=== PATIENT | female | born 1960 | race Caucasian/White ===

== ENCOUNTER 2020-06-08 15:13 | Outpatient (CLI) | payer OTHER, SELFPAY ==
--- NOTE | ~2020-06-08 | MM_ITS ---
EXAMINATION: MM screening [facility] w ada HISTORY: Screening TECHNIQUE: Craniocaudal and mediolateral oblique 3-D tomosynthesis images were obtained and synthetic 2-D images were generated. CAD analysis was submitted and interpreted. COMPARISON: Comparison to multiple prior studies sequentially, with oldest reviewed study dated 02/13. BREAST PARENCHYMAL COMPOSITION: There are scattered areas of fibroglandular density. FINDINGS: There is no evidence of suspicious mass, calcification, or architectural distortion to sugg est malignancy in either breast. There has been no suspicious interval change. IMPRESSION: 1. No mammographic evidence of malignancy. 2. Recommend routine screening mammography in one year. BI-RADS Category 1: Negative Reviewed, dictated and finalized at location A.
== END 2020-06-08 15:14 | disposition home or self-care (01) ==
DX: Z12.31 Encounter for screening mammogram for malignant neoplasm of breast (principal)
CPT/HCPCS: 77063; 77067

== ENCOUNTER 2021-08-17 07:42 | Outpatient (CLI) | payer OTHER, SELFPAY ==
--- NOTE | ~2021-08-17 | MM_ITS ---
EXAMINATION: MM screening [facility] BI w ada HISTORY: Screening mammogram TECHNIQUE: Craniocaudal and mediolateral oblique 3-D tomosynthesis images were obtained and synthetic 2-D images were generated. CAD analysis was submitted and interpreted. COMPARISON: 06/08/2020, 04/30/2019, 03/27/2018 BREAST PARENCHYMAL COMPOSITION: There are scattered areas of fibroglandular density. FINDINGS: A stable intramammary lymph node is noted in the upper outer quadrant of the left breast. T here is no evidence of suspicious mass, calcification, or architectural distortion to suggest maligna ncy in either breast. There has been no suspicious interval change. IMPRESSION: 1. No mammographic evidence of malignancy. 2. Recommend routine screening mammography in one year. BI-RADS Category 2: Benign finding(s). Reviewed, dictated and finalized at location A. L BUSINESS CONSULTANT
== END 2021-08-17 07:43 | disposition home or self-care (01) ==
LOC: ANHIMG 07:46
PROVIDERS: Visit Provider Internal Medicine
DX: Z12.31 Encounter for screening mammogram for malignant neoplasm of breast (principal)
CPT/HCPCS: 77063; 77067

== ENCOUNTER 2022-09-26 15:18 | Outpatient (CLI) | payer OTHER, SELFPAY ==
--- NOTE | ~2022-09-26 | MM_ITS ---
EXAMINATION: MM screening [facility] BI w ada HISTORY: Screening TECHNIQUE: Craniocaudal and mediolateral oblique 3-D tomosynthesis images were obtained and synthetic 2-D images were generated. CAD analysis was submitted and interpreted. COMPARISON: Comparison to multiple prior studies sequentially, with oldest reviewed study dated 12/2015. BREAST PARENCHYMAL COMPOSITION: There are scattered areas of fibroglandular density. FINDINGS: There is no evidence of suspicious mass, calcification, or architectural distortion to sugg est malignancy in either breast. There has been no suspicious interval change. IMPRESSION: 1. No mammographic evidence of malignancy. 2. Recommend routine screening mammography in one year. BI-RADS Category 1: Negative Reviewed, dictated and finalized at location A. THODONTIST
== END 2022-09-26 15:19 | disposition home or self-care (01) ==
LOC: ANHIMG 15:19
PROVIDERS: PCP Family Medicine; Visit Provider Family Medicine
DX: Z12.31 Encounter for screening mammogram for malignant neoplasm of breast (principal)
CPT/HCPCS: 77063; 77067

== ENCOUNTER 2022-10-11 02:10 | Day surgery (SDC) | payer OTHER, SELFPAY ==
[2022-09-27 13:24] VITALS: BMI 25.4
[2022-10-11 07:20] VITALS: BP 129/70; PULSE 98; RESP 18; TEMP 36.6; O2SAT 100
[2022-10-11] MEDS: LACTATED RINGERS 1,000 ML 150 ML IV CONT (07:28)
--- NOTE | 2022-10-11 07:59 | PM.HPGS ---
History of Present Illness History of Present Illness Consent: Risks, benefits, and alternatives have been discussed and questions answered. Patient agrees to proceed with procedure. Chief complaint: neoplasm screening Narrative: Mary Rao is a 62 year old female Presents for screening colonoscopy. Patient's family history is significant her mother had colon cancer at age 62. Patient reports that her current weight appetite and bowel movements are normal. She states someone previous colonoscopy she may have had a colon polyp. Patient has had no bleeding. No abdominal pain or bowel habits are normal. Review of Systems Review of Systems: Review of systems is noncontributory. [facility] Past Medical History Medical History (Updated 09/01/22 @ 10:34 by Esdras Rosario MD) Anxiety Breast cancer GERD (gastroesophageal reflux disease) Hypertension Insomnia Screening for breast cancer Screening for colon cancer Surgical History Surgical History (Updated 09/01/22 @ 10:04 by RT Gilmar(R)) Breast cancer (~07/2011) Family History Family History (Updated 09/01/22 @ 10:53 by RT Gilmar(R)) Father Hypertension Heart disease Mother Carcinoma of colon Hypertension Social History Social History (Updated 09/01/22 @ 11:36 by RT Gilmar(R)) Smoking packs per day: 1.5 Smoking cigarettes per day: 30.0 Smoking status: Former smoker Tobacco type: cigarettes Smoking end date: 04/28/18 Alcohol intake: current Drinks per week: 6 Substance use: never Substance use type: does not use Living arrangements: alone Additional living arrangements comments: Spiritual care concerns: No Agree to blood products: Yes Meds Home Medications and Allergies Home Medications Medication Instructions Recorded Confirmed Type Saccharomyces boulardii 250 mg 5,000 mmu cells PO DAILY 09/01/22 09/27/22 History capsule (Daily Probiotic (S. boulardii)) lisinopril 10 mg tablet 10 mg PO DAILY #90 tabs 09/01/22 09/27/22 Rx magnesium 200 mg tablet 200 mg PO DAILY 09/01/22 09/27/22 History zolpidem 10 mg tablet (Ambien) 10 mg PO QHS PRN insomnia #30 tabs 09/01/22 09/27/22 Rx cholecalciferol (vitamin D3) 25 25 mcg PO DAILY 09/27/22 09/27/22 History mcg (1,000 unit) tablet (Vitamin D3) omeprazole 40 mg capsule,delayed 40 mg PO DAILY 09/27/22 09/27/22 History release Allergies Allergy/AdvReac Type Severity Reaction Status Date / Time bee venom protein (honey bee) Allergy Other Verified 10/11/22 07:19 Vital Signs Vital Signs - 24 hr 10/11/22 07:20 Temperature 97.8 F Pulse Rate 98 Respiratory Rate 18 Blood Pressure 129/70 Pulse Oximetry 100 Oxygen Delivery Room Air Exam Narrative: Physical exam reveals patient to be alert. Vital signs stable. HEENT exam is unremarkable. Patient is anicteric. Lungs are clear to auscultation and percussion. Heart is without murmur or extra sounds. Abdomen bowel sounds are present soft nontender with no organomegaly. Digital external rectal exam is normal. Assessment and Plan Assessment and plan (1) Screening for colon cancer: Code(s): Z12.11 - Encounter for screening for malignant neoplasm of colon Status: Acute Assessment and Plan: Patient presents for screening colonoscopy. she does have a family history of colon cancer mother. Further recommendations may be given after endoscopy.
--- NOTE | 2022-10-11 08:13 | WPDANESEPPF ---
Anes - Initial Pre Proc Eval Procedure: Operation Date: 10/11/22 08:30 Proposed Procedures p Screening Colonoscopy - Kash Sandy MD Date/Time: 10/11/22 08:13 Surgeon: Kash Sandy MD Pre Op Diagnosis: neoplasm screening Patient Data Age: 62 Gender: F Height: 1.6 m Weight: 63.3 kg Last Vital Signs Temp 97.8 F 10/11/22 07:20 Pulse 98 10/11/22 07:20 Resp 18 10/11/22 07:20 BP 129/70 10/11/22 07:20 Pulse Ox 100 10/11/22 07:20 O2 Del Method Room Air 10/11/22 07:20 Allergies Allergy/AdvReac Type Severity Reaction Status Date / Time bee venom protein (honey bee) Allergy Other Verified 10/11/22 07:19 Home Medications Medication Instructions Recorded Confirmed Type Saccharomyces boulardii 250 mg 5,000 mmu cells PO DAILY 09/01/22 09/27/22 History capsule (Daily Probiotic (S. boulardii)) lisinopril 10 mg tablet 10 mg PO DAILY #90 tabs 09/01/22 09/27/22 Rx magnesium 200 mg tablet 200 mg PO DAILY 09/01/22 09/27/22 History zolpidem 10 mg tablet (Ambien) 10 mg PO QHS PRN insomnia #30 tabs 09/01/22 09/27/22 Rx cholecalciferol (vitamin D3) 25 25 mcg PO DAILY 09/27/22 09/27/22 History mcg (1,000 unit) tablet (Vitamin D3) omeprazole 40 mg capsule,delayed 40 mg PO DAILY 09/27/22 09/27/22 History release Patient hx anesthesia problems: none Family hx anesthesia problems: none Results Review: All pre-operative results and documents have been reviewed as part of the pre-operative evaluation. [facility] Past Medical History Medical History (Updated 09/01/22 @ 10:34 by Esdras Rosario MD) Anxiety Breast cancer GERD (gastroesophageal reflux disease) Hypertension Insomnia Screening for breast cancer Screening for colon cancer Surgical History Surgical History (Updated 09/01/22 @ 10:04 by Sammi Chan, RT(R)) Breast cancer (~07/2011) Family History Family History (Updated 09/01/22 @ 10:53 by Sammi Chan, RT(R)) Father Hypertension Heart disease Mother Carcinoma of colon Hypertension Social History Social History (Updated 09/01/22 @ 11:36 by Sammi Chan, RT(R)) Smoking packs per day: 1.5 Smoking cigarettes per day: 30.0 Smoking status: Former smoker Tobacco type: cigarettes Smoking end date: 04/28/18 Alcohol intake: current Drinks per week: 6 Substance use: never Substance use type: does not use Living arrangements: alone Additional living arrangements comments: Spiritual care concerns: No Agree to blood products: Yes Anes - Eval Final PreProcedure Day of Procedure 10/11/22 08:13 Patient weight: normal Heart: regular rate and rhythm Lungs: clear to auscultation Airway: Mallampati scale class II Neurological: alert and oriented Last oral intake: >/= 8 hours ASA classification: III Emergent: no Anesthetic plan: proceed Anesthesia type and monitoring: general GIVS and standard monitoring Results Review: All pre-operative results and documents have been reviewed as part of the pre-operative evaluation. Informed Consent: The patient's anesthetic plan and its attendant risks and benefits were discussed with the patient/family/POA. Questions were solicited and answers provided to the satisfaction of the patient/family/POA.
[2022-10-11 08:55] VITALS: BP 109/77; PULSE 108; RESP 27; O2SAT 98
[2022-10-11 09:05] VITALS: BP 121/80; PULSE 85; RESP 16; O2SAT 98
[2022-10-11 09:15] VITALS: BP 122/81; PULSE 89; RESP 16; O2SAT 98
== END 2022-10-11 09:21 | disposition home or self-care (01) ==
PROVIDERS: PCP Family Medicine; Visit Provider Internal Medicine Gastroenterology
PROC: 0DJD8ZZ Inspection of Lower Intestinal Tract, Via Natural or Artificial Opening Endoscopic (ICD-10-PCS; CPT 45378; principal; 2022-10-11 08:30)
DX: Z12.11 Encounter for screening for malignant neoplasm of colon (principal); D12.2 Benign neoplasm of ascending colon; K57.30 Diverticulosis of large intestine without perforation or abscess without bleeding; K64.8 Other hemorrhoids; Z80.0 Family history of malignant neoplasm of digestive organs; I10 Essential (primary) hypertension; K21.9 Gastro-esophageal reflux disease without esophagitis; F41.9 Anxiety disorder, unspecified; Z85.3 Personal history of malignant neoplasm of breast; Z87.891 Personal history of nicotine dependence
CPT/HCPCS: 45380; 88305; J2704; J7120

== ENCOUNTER 2023-11-21 08:32 | Outpatient (CLI) | payer OTHER, SELFPAY ==
--- NOTE | ~2023-11-21 | MM_ITS ---
EXAMINATION: MM screening [place] BI w ada HISTORY: Screening mammogram TECHNIQUE: Craniocaudal and mediolateral oblique 3-D tomosynthesis images were obtained and synthetic 2-D images were generated. CAD analysis was submitted and interpreted. COMPARISON: 09/26/2021, 08/16 bilateral screening mammogram examinations BREAST PARENCHYMAL COMPOSITION: The breasts are almost entirely fatty. FINDINGS: History of right partial mastectomy for breast cancer. There is no evidence of suspicious m ass, calcification, or architectural distortion to suggest malignancy in either breast. There has bee n no suspicious interval change. IMPRESSION: 1. No mammographic evidence of malignancy. 2. Recommend routine screening mammography in one year. BI-RADS Category 1: Negative Reviewed, dictated and finalized at location A.
== END 2023-11-21 08:33 | disposition home or self-care (01) ==
PROVIDERS: PCP Family Medicine; Visit Provider Family Medicine
DX: Z12.31 Encounter for screening mammogram for malignant neoplasm of breast (principal)
CPT/HCPCS: 77063; 77067

== ENCOUNTER 2024-12-03 09:27 | Outpatient (CLI) | payer OTHER, SELFPAY ==
--- NOTE | ~2024-12-03 | MM_ITS ---
EXAMINATION: MM screening [place] BI w ada HISTORY: Screening TECHNIQUE: Craniocaudal and mediolateral oblique 3-D tomosynthesis images were obtained and synthetic 2-D images were generated. CAD analysis was submitted and interpreted. COMPARISON: Comparison to multiple prior studies sequentially, with oldest reviewed study dated 03/27. BREAST PARENCHYMAL COMPOSITION: Not dense: There are scattered areas of fibroglandular density. FINDINGS: There is no evidence of suspicious mass, calcification, or architectural distortion to sugg est malignancy in either breast. There has been no suspicious interval change. IMPRESSION: 1. No mammographic evidence of malignancy. 2. Recommend routine screening mammography in one year. BI-RADS Category 1: Negative Reviewed, dictated and finalized at location A.
--- OUTSIDE RECORDS SUMMARY | 2024-12-03 10:20 | XMS_ITS | Clinical Summary ---
Author Organization [facility] Address [facility] [place] [address] Care Team Providers Care Rubber Compounder Mixer Name Role Phone Unavailable Primary Care Provider Unavailabl e Allergies Active Allergy Reactions Criticality Noted Date Comments Wasp Venom Swelling Medium 09/23/2016 Medications Black Cohosh 200 MG Cap Active lisinopril 10 MG tabletIndications :Essential hypertension Take 1 tablet (10 mg total) by mouth daily. 90 tablet 3 0 Active esomeprazole 40 MG capsuleIndication s:Gastroesophagea l reflux disease, unspecified whether esophagitis present Take 1 capsule (40 mg total) by mouth every morning before breakfast. 90 capsule 3 0 Active citalopram 20 MG tabletIndications :YAMILETH (generalized anxiety disorder) Take 1 tablet (20 mg total) by mouth daily. Need office visit or video visit for any further refills. 30 tablet 1 Active Active Problems Problem Noted Date Diagnosed Date Dysuria 04/06/2018 Hot flashes 03/27/2018 Tobacco dependence 06/27/2017 Assessment & Plan (06/04/2020 10:05 AM CDT): Quit 2018 Malignant neoplasm of breast ([facility]) 0 09/23/2016 Resolved Problems Problem Noted Date Diagnosed Date Resolved Date UTI (urinary tract infection) 04/06/2018 06/04/2020 Obesity 06/27/2017 06/04/2020 Hypertension 09/23/2016 06/04/2020 Encounter for preventive health examination 09/08/2015 05/08/2020 Immunizations Name Administration Dates Next Due Tdap (Adacel) 04/16/2019 Tdap (Generic) 04/16/2019 Family History Medical History Relation Comments Heart Disease Father Cancer Mother Hypertension Mother Relation Status Comments Father Mother Social History Tobacco Use Types Packs/Day Years Used Date Smoking Tobacco: Former Smokeless Tobacco: Never Alcohol Use Standard Drinks/Week Comments Yes 0 (1 standard drink = 0.6 oz pur e alcohol) PHQ-2 Answer Date Recorded PHQ-2 Score - If the patient scores above 3, please move on to questions 3-9 0 06/04/2020 Comments No Sex and Gender Information Value Date Recorded Sex Assigned at Not on file Legal Sex Female 7:22 PM CDT Gender Identity Not on file Sexual Orientation Not on file Occupation Industry Job Start Date Job End Date Not on file Not on file Not on file Not on file Last Filed Vital Signs Vital Sign Reading Time Taken Comments Blood Pressure 132/86 06/04/2020 9:08 AM CDT home reading this AM Pulse 88 06/04/2020 8:59 AM CDT Temperature 36.2 C (97.1 F) 06/04/2020 8:59 AM CDT Respiratory Rate 18 06/04/2020 8:59 AM CDT Oxygen Saturation 98% 06/04/2020 8:5 9 AM CDT Inhaled Oxygen Concentration - - Weight 64.9 kg (143 lb) 06/04/2020 8:59 AM CDT Height 161.3 cm (5' 3.5 ) 06/04/2020 8: 59 AM CDT Body Mass Index 24.93 06/04/2020 8:59 AM CDT Plan of Treatment Health Maintenance Due Date Last Done Comments Cervical Cancer Screening Pa p Smear (Age 30 to 64) Every 3 Years 1961 Annual Physical 1964 Hepatitis C 1979 Cervical Cancer Screening Pa p with HPV Testing (Age 30 to 64) Every 5 Years 1991 Cervical Cancer Screening wi th HPV 1991 Zoster Vaccines (1 of 2) 2011 Mammogram Screening 06/08/2022 06/08/2020, 04/30/2019, 03/21/2017 COVID-19 Vaccine (2023-2 5 season) 2024 Colorectal Cancer Screening Colonoscopy (10 Years) 11/17/2026 11/17/2016 DTaP, Tdap and Td Vaccines ( 3 - Td or Tdap) 04/16/2029 04/16/2019, 04/16/2019 RSV Immunization or 60+ Years (1 - 1-dose 75+ series) 2036 Meningococcal B Vaccine Aged Out No l onger eligible based on patient's age to complete this topic Meningococcal Vaccine Aged Out No sunil lyly eligible based on patient's age to complete this topic Pneumococcal Vaccine: Pediatrics (0 to 5 Years) and At-Risk Patients (6 to 64 Years) Aged Out No longer eligible b ased on patient's age to complete this topic RSV Immunizations Under 20 Months Aged Out No longer eligible b ased on patient's age to complete this topic Procedures Procedure Name Priority Date/Time Associated Diagnosis Comments MAMMOGRAM GENERIC (SCAN ORDER) 06/08/2020 COLONOSCOPY GENERIC (SCAN ORDER) Routine 11/17/2016 12:00 AM CDT from Last 3 Months or Most Recently Relevant to Health Maintenance Results * MAMMOGRAM GENERIC (06/08/2020) Anatomical Region Laterality Modality Other 06/08/2020 Narrative 06/08/2020 Ordered by an unspecified provider. us Documents Scanned SCANNING Final Result * COLONOSCOPY (11/17/2016 12:00 AM CDT) 11/17/2016 us Documents Scanned SCANNING Final Result Performing Organization Address City/State/[facility] Co ct Phone Number [facility] from Last 3 Months or Most Recently Relevant to Health Maintenance Insurance [employer]
== END 2024-12-03 09:28 | disposition home or self-care (01) ==
LOC: ANHIMG 09:30
PROVIDERS: PCP Nurse Practitioner Family; Visit Provider Nurse Practitioner Family
DX: Z12.31 Encounter for screening mammogram for malignant neoplasm of breast (principal)
CPT/HCPCS: 77063; 77067